=== PATIENT | female | born 1940 | race Two or more races ===

== ENCOUNTER 2016-12-24 12:31 | Observation (INO) | payer MEDICARE, OTHER ==
[~2016-12-24] VITALS: Ht 165.1 cm; Wt 97.5 kg
[2016-12-24] MEDS ORDERED: SOD CHLORIDE 0.9% 1,000 ML IV STA (12:42)
[2016-12-24 12:59] LABS: ADD SCAN DIFF NO
[2016-12-24 13:02] LABS: BASOPHILS % 0.1 % (0.0-2.0); HEMATOCRIT 35.1 % (37.0-47.0); HEMOGLOBIN 11.6 g/dl (12.0-16.0); LYMPHOCYTES # 1.2 10^3/ul (0.8-2.9); LYMPHOCYTES % 16.4 % (15.0-51.0); MEAN CORPUSCULAR HEMOGLOBIN 29.8 pg (29.0-33.0); MEAN CORPUSCULAR VOLUME 90.2 fl (82.0-101.0); MEAN PLATELET VOLUME 10.6 fl (7.4-10.4); MONOCYTE # 0.3 10^3/ul (0.3-0.9); MONOCYTES % 3.6 % (0.0-11.0); NEUTROPHIL # 5.9 10^3/ul (1.6-7.5); NEUTROPHILS % 79.5 % (39.0-77.0); PLATELET COUNT 136 10^3/UL (140-415); RED BLOOD COUNT 3.89 10^6/ul (4.20-5.40); RED CELL DISTRIBUTION WIDTH 13.2 % (11.5-14.5); WHITE BLOOD COUNT 7.4 10^3/ul (4.8-10.8)
--- NOTE | 2016-12-24 13:19 | RADRPT ---
PROCEDURE: Chest x-ray CLINICAL INDICATION: Weakness TECHNIQUE: Chest single view COMPARISON: None FINDINGS: There is moderate cardiomegaly and an sclerotic aortic calcification. The pulmonary vessels are nor mal in caliber. There is mild scarring in the left lower lung. Lungs otherwise clear. The costophr enic angles are sharp. The visualized bony thorax is unremarkable. IMPRESSION: No acute cardiopulmonary disease. Cardiomegaly and an sclerotic aortic calcification Left lower lung scarring RPTAT: HH .Destin Elena MD, MD Date Time Electronically viewed and signed by .Destin Elena MD, MD on 12/24/2016 13:19 .W/
[2016-12-24 13:20] LABS: ALANINE AMINOTRANSFERASE 30 IU/L (13-69); ALBUMIN 4.1 g/dl (3.3-4.9); ALBUMIN/GLOBULIN RATIO 1.57; ALKALINE PHOSPHATASE 82 IU/L (42-121); ANION GAP 13 (8-16); ASPARTATE AMINO TRANSFERASE 18 IU/L (15-46); BILIRUBIN,INDIRECT 0.4 mg/dl (0-1.1); BILIRUBIN,TOTAL 0.4 mg/dl (0.2-1.3); BLOOD UREA NITROGEN 21 mg/dl (7-20); CALCIUM 8.5 mg/dl (8.4-10.2); CARBON DIOXIDE 24 mmol/L (21-31); CHLORIDE 106 mmol/L (97-110); CREATININE 0.89 mg/dl (0.44-1.00); GLUCOSE 110 mg/dl (70-220); POTASSIUM 3.8 mmol/L (3.5-5.1); SODIUM 139 mmol/L (135-144); TOTAL PROTEIN 6.7 g/dl (6.1-8.1)
[2016-12-24 13:27] LABS: URINE BLOOD (Dip) POC Negative (NEGATIVE)
[2016-12-24 13:34] LABS: TROPONIN-I < 0.012 ng/ml (0.00-0.12)
[2016-12-24] MEDS ORDERED: ONDANSETRON 4 MG INJ IV STA (13:37)
[2016-12-24 13:41] LABS: ADD UMIC YES; UR BILIRUBIN (Dip) 1+ (NEGATIVE); UR BLOOD (Dip) NEGATIVE (NEGATIVE); UR CLARITY CLEAR (CLEAR); UR COLOR YELLOW (YELLOW); UR GLUCOSE (Dip) NEGATIVE (NEGATIVE); UR KETONES (Dip) TRACE (NEGATIVE); UR LEUKOCYTE ESTERASE (Dip) TRACE (NEGATIVE); UR NITRITE (Dip) NEGATIVE (NEGATIVE); UR TOTAL PROTEIN (Dip) TRACE (NEGATIVE); UR UROBILINOGEN (Dip) 0.2 E.U./dL (0.1-1.0)
--- NOTE | 2016-12-24 13:42 | ERA ---
ER Documentation Chief Complaint Date/Time DATE: 12/24/16 TIME: 13:36 Chief Complaint hypotensive HPI 76-year-old woman brought in by EMS from [facility] for complaints of dizziness and feeling lightheaded, at the facility they took her blood pressure and systolic was 60 mmHg and they called 911. Patient also complains of sharp nonexertional nonradiating chest pain but denies shortness of breath. She has had no fevers or chills, no vomiting or diarrhea, no headache or blurry vision. Patient was transported here by EMS without further complication ROS All systems reviewed and are negative except as per history of present illness. Allergies Allergies: Coded Allergies: No Known Allergy (Verified Allergy, Mild, 07/08/07) PMhx/Soc Obesity, hypertension History of Surgery: No Anesthesia Reaction: No Hx Neurological Disorder: No Hx Respiratory Disorders: No Hx Cardiac Disorders: Yes (htn, CAD) Hx Psychiatric Problems: No Hx Miscellaneous Medical Probl: No Hx Alcohol Use: No Hx Substance Use: No Hx Tobacco Use: No Smoking Status: Never smoker FmHx Family History: No diabetes Physical Exam Vitals Vital Signs Date Time Temp Pulse Resp B/P Pulse Ox O2 Delivery O2 Flow Rate FiO2 12/24/16 12:40 98.0 71 18 105/65 97 Physical Exam GENERAL: Well-developed, well-nourished, appears dehydrated, dizzy HEENT: Dry mucous membranes, pink conjunctiva, no cervical spine tenderness or step-off deformities, no goiter, no jaundice or icterus, extraocular movements intact without pain. No submandibular induration, and no pharyngeal erythema NEURO: Alert and oriented 3, cranial nerves II through XII intact bilaterally, pupils equal round reactive to light, no focal deficits or facial asymmetry, sensation intact distally Strength 5/5 in upper and lower extremities bilaterally, no nystagmus CARDIAC: Regular rate and rhythm, no murmurs rubs or gallops LUNGS: Clear bilaterally no wheezing crackles or stridor ABDOMEN: Soft nontender, no guarding, no rigidity, no rebound, no psoas sign no obturator sign. Normoactive bowel sounds SKIN: Warm and dry to touch, no abrasions, contusions, or hematomas, no lacerations, no ecchymosis, no target lesions, and without ulcers EXTREMITIES: No clubbing cyanosis or edema, calves are bilaterally symmetrical, no Homans sign, no popliteal cord sign. Distal pulses equal and bilateral PSYCH: Normal affect without agitation or irritability Result Diagram: 12/24/16 1255 12/24/16 1255 Results 24 hrs Laboratory Tests Test 12/24/16 12:55 12/24/16 13:20 12/24/16 13:29 White Blood Count 7.410^3/ul Red Blood Count 3.8910^6/ul Hemoglobin 11.6g/dl Hematocrit 35.1% Mean Corpuscular Volume 90.2fl Mean Corpuscular Hemoglobin 29.8pg Mean Corpuscular Hemoglobin Concent 33.0g/dl Red Cell Distribution Width 13.2% Platelet Count 21074^3/UL Mean Platelet Volume 10.6fl Neutrophils % 79.5% Lymphocytes % 16.4% Monocytes % 3.6% Eosinophils % 0.0% Basophils % 0.1% Nucleated Red Blood Cells % 0.0/100WBC Neutrophils # 5.910^3/ul Lymphocytes # 1.210^3/ul Monocytes # 0.310^3/ul Eosinophils # 0.010^3/ul Basophils # 0.010^3/ul Nucleated Red Blood Cells # 0.010^3/ul Sodium Level 139mmol/L Potassium Level 3.8mmol/L Chloride Level 106mmol/L Carbon Dioxide Level 24mmol/L Anion Gap 13 Blood Urea Nitrogen 21mg/dl Creatinine 0.89mg/dl Glucose Level 110mg/dl Calcium Level 8.5mg/dl Total Bilirubin 0.4mg/dl Direct Bilirubin 0.00mg/dl Indirect Bilirubin 0.4mg/dl Aspartate Amino Transf (AST/SGOT) 18IU/L Alanine Aminotransferase (ALT/SGPT) 30IU/L Alkaline Phosphatase 82IU/L Troponin I < 0.012ng/ml Total Protein 6.7g/dl Albumin 4.1g/dl Globulin 2.60g/dl Albumin/Globulin Ratio 1.57 Lipase 51U/L Urine Color YELLOW Urine Clarity CLEAR Urine pH 5.5 Urine Specific [place] 1.025 Urine Ketones TRACE Urine Nitrite NEGATIVE Urine Bilirubin 1+ Urine Ictotest Pending Urine Urobilinogen 0.2 E.U./dL Urine Leukocyte Esterase TRACE Urine Microscopic RBC Pending Urine Microscopic WBC Pending Urine Hemoglobin NEGATIVE Urine Glucose NEGATIVE% Urine Total Protein TRACE Bedside Urine pH (LAB) 5.5 Bedside Urine Protein (LAB) 1+ Bedside Urine Glucose (UA) Negative Bedside Urine Ketones (LAB) 1+ Bedside Urine Blood Negative Bedside Urine Nitrite (LAB) Negative Bedside Urine Leukocyte Esterase (L Negative Current Medications Medications (Trade) Dose Ordered Sig/Lisa Route PRN Reason Start Time Stop Time Status Last Admin Dose Admin Sodium Chloride (NS) 1,000 ml @ 2,000 mls/hr Q30M STAT IV 12/24/16 12:42 12/24/16 13:11 DC 12/24/16 13:39 Ondansetron HCl (Zofran Inj) 4 mg ONCE STAT IV 12/24/16 13:37 12/24/16 13:39 DC Aspirin (Aspirin) 325 mg ONCE ONCE PO 12/24/16 14:00 12/24/16 14:01 Procedures/MDM IV line was established patient was placed on satellite project site monitor rhythm strip revealed a sinus rhythm at about 70 bpm with upright P and T waves. Patient was afebrile. For initial hypotension and dizziness I treated her here with 2 L normal saline intravenously, Zofran 4 mg IV, and aspirin 325 mg p.o. for cardioprotective measures. EKG performed, read by me: 73 bpm, normal sinus rhythm, normal axis, no acute ST segment changes, narrow QRS complex, with good R-wave progression in precordial leads. One AP view of the chest performed, read by me reveals no acute infiltrates, normal mediastinum, sharp costophrenic and cardiac borders, no air under the diaphragm. Otherwise unremarkable chest x-ray. CBC was unremarkable, electrolytes revealed dehydration with a BUN/creatinine of 21/0.9, liver function tests are normal, troponin was negative. Urine analysis appears unremarkable Patient did complain of low back pain while here so CT scan of the abdomen and pelvis has been ordered to rule out stones, results are pending I will follow- up. Patient will be admitted to telemetry setting for a near syncopal episode, complaints of chest pain, and initial hypotension. Departure Diagnosis: Primary Impression: Hypotension Qualified Code: I95.9 - Hypotension, unspecified hypotension type Additional Impressions: Dizziness Chest pain Qualified Code: R07.9 - Chest pain, unspecified type Near syncope Condition: YASH Hanna MD Dec 24, 2016 13:42
[2016-12-24 13:51] LABS: UR BACTERIA MANY; UR MUCUS MANY
[2016-12-24] MEDS ORDERED: ASPIRIN 325 MG TAB PO ONE (14:00)
[2016-12-24] MEDS ORDERED: VALS320T11 PO (14:15)
[2016-12-24] MEDS ORDERED: MIRA50TA PO (14:16)
--- NOTE | 2016-12-24 14:16 | RADRPT ---
PROCEDURE: CT Abdomen and Pelvis without contrast. CLINICAL INDICATION: Abdominal pain TECHNIQUE: CT of the abdomen and pelvis was performed on a multi-detector scanner without IV contr ast. Coronal and sagittal images were reformatted from the axial data set. One or more of the foll owing dose reduction techniques were used: automated exposure control, adjustment of the mA and/or kV according to patient size, use of iterative reconstruction technique. CTDI = 22.74 mGy. DLP = 12 75.94 mGy-cm. COMPARISON: None. FINDINGS: CT abdomen: The lung bases are clear. There is mild cardiomegaly, without significant pericardial fluid. Coron emilie arterial calcifications are noted. Liver, gallbladder, biliary tree, pancreas, spleen, adrenal glands and kidneys are unremarkable except for benign renal cysts. No urolithiasis or obstructive u ropathy is identified. Moderate to large hiatal hernia is noted. The stomach is otherwise grossly unremarkable. The aorta is of normal caliber. Aortic vascular calcifications are present. There is no retroperit [place] lymphadenopathy. The cee hepatis region is clear. CT pelvis: No bowel obstruction, free intraperitoneal air or abscess is identified. Colonic diverticulosis is seen without diverticulitis. There is no appendicitis or colitis. Fat and fluid containing umbilic al hernia is noted. Uterus is surgically absent. Urinary bladder is grossly unremarkable. No pelvi c mass, free fluid or lymphadenopathy is identified. The surrounding osseous structures are remarkable for degenerative spondylosis of the spine. No ost eolytic or osteoblastic lesion is detected. IMPRESSION: 1. Moderate to large hiatal hernia is noted. 2. Fat and fluid-containing umbilical hernia is seen, without incarceration. 3. Coronary arterial and aortoiliac atherosclerotic calcifications are present. 4. Colonic diverticulosis is seen without diverticulitis. 5. Uterus is surgically absent. 6. No mass, lymphadenopathy, or focal acute inflammatory process is identified. RPTAT: EE .Lee Mcadams MD, MD Date Time Electronically viewed and signed by .Lee Mcadams MD, MD on 12/24/2016 14:16 .R/
[2016-12-24] MEDS ORDERED: ATOR20TA38 PO (14:17)
[2016-12-24] MEDS ORDERED: ZOLP5TAB7 PO (14:17)
[2016-12-24] MEDS ORDERED: AMLO-147 PO (14:17)
[2016-12-24] MEDS ORDERED: OMEP20CA16 PO (14:18)
[2016-12-24] MEDS ORDERED: ASPI-664 PO (14:18)
[2016-12-24] MEDS ORDERED: ERGO500037 PO (14:19)
[2016-12-24] MEDS ORDERED: EZET10TA3 PO (14:19)
[2016-12-24] MEDS ORDERED: DOCU100C26 PO (14:21)
[2016-12-24] MEDS ORDERED: CLON-379 PO (14:22)
[2016-12-24] MEDS ORDERED: DOCUSATE SODIUM 100 MG CAP PO PRN (14:30)
[2016-12-24] MEDS ORDERED: BISACODYL (EC) 5 MG TAB PO PRN (14:30)
[2016-12-24] MEDS ORDERED: BISACODYL 10 MG SUPP PR PRN (14:30)
[2016-12-24] MEDS ORDERED: morphine 2 MG INJ IV PRN (14:30)
[2016-12-24] MEDS ORDERED: NACL 0.9% 3 ML SYG IV SCH (14:30)
[2016-12-24] MEDS ORDERED: ONDANSETRON 4 MG INJ IV PRN (14:30)
[2016-12-24] MEDS ORDERED: HYDROCODONE/APAP (5/325) TAB PO PRN (14:30)
[2016-12-24 14:44] LABS: ICTOTEST NEGATIVE (NEGATIVE)
[2016-12-24 16:00] LABS: INR 1.02; PROTIME 13.4 Sec (12.2-14.2)
[2016-12-24 16:01] LABS: PARTIAL THROMBOPLASTIN TIME 33.3 Sec (25.0-35.0)
[2016-12-24] MEDS: ACETAMINOPHEN 325 MG TAB PO PRN (20:16)
[2016-12-24 20:48] VITALS: PULSE 85
[2016-12-24] MEDS ORDERED: ATORVASTATIN 20 MG TAB PO SCH (21:00)
[2016-12-24] MEDS ORDERED: EZETIMIBE 10 MG TAB PO SCH (21:00)
[2016-12-24 21:16] VITALS: Ht 165.1 cm; Wt 97.5 kg
[2016-12-24 22:00] VITALS: BP 130/74; PULSE 74
[2016-12-24 22:01] VITALS: BP 130/76; PULSE 73
[2016-12-24 22:02] VITALS: BP 131/73; PULSE 75
[2016-12-24] MEDS: SOD CHLORIDE 0.9% 1,000 ML IV SCH ×2 (22:57→23:13)
[2016-12-24] MEDS: [UNRECOGNIZED DRUG - REMARK] XX SCH (22:58)
[2016-12-25] VITALS (9 sets, daily range): BP systolic 130–145; BP diastolic 65–91; PULSE 69–73; RESP 18–19
[2016-12-25] MEDS: [UNRECOGNIZED DRUG - REMARK] XX SCH ×2 (01:30→08:40)
[2016-12-25] MEDS: ACETAMINOPHEN 325 MG TAB PO PRN (01:37)
[2016-12-25 06:23] LABS: ADD SCAN DIFF NO
[2016-12-25 06:41] LABS: HEMATOCRIT 34.5 % (37.0-47.0); HEMOGLOBIN 11.2 g/dl (12.0-16.0); LYMPHOCYTES # 1.4 10^3/ul (0.8-2.9); MEAN CORPUSCULAR HEMOGLOBIN 29.5 pg (29.0-33.0); MEAN CORPUSCULAR HGB CONC 32.5 g/dl (32.0-37.0); MEAN CORPUSCULAR VOLUME 90.8 fl (82.0-101.0); MEAN PLATELET VOLUME 10.7 fl (7.4-10.4); MONOCYTE # 0.4 10^3/ul (0.3-0.9); MONOCYTES % 6.8 % (0.0-11.0); NEUTROPHIL # 4.1 10^3/ul (1.6-7.5); PLATELET COUNT 133 10^3/UL (140-415); RED CELL DISTRIBUTION WIDTH 13.2 % (11.5-14.5); WHITE BLOOD COUNT 5.9 10^3/ul (4.8-10.8)
[2016-12-25 07:10] LABS: ALBUMIN 3.9 g/dl (3.3-4.9); ALBUMIN/GLOBULIN RATIO 1.56; BILIRUBIN,INDIRECT 0.2 mg/dl (0-1.1); BILIRUBIN,TOTAL 0.2 mg/dl (0.2-1.3); CALCIUM 8.6 mg/dl (8.4-10.2); CHOL/HDL RATIO 2.4 RATIO; CREATININE 0.75 mg/dl (0.44-1.00); PHOSPHORUS 3.7 mg/dl (2.5-4.9); POTASSIUM 3.9 mmol/L (3.5-5.1); TOTAL PROTEIN 6.4 g/dl (6.1-8.1)
[2016-12-25 07:31] LABS: THYROID STIMULATING HORMONE 1.73 MIU/L (0.465-4.680)
[2016-12-25] MEDS ORDERED: NON-FORMULARY/PATIENT OWN MED (Mirabegron (Myrbetriq) 50 MG) PO SCH (09:00)
[2016-12-25] MEDS ORDERED: ASPIRIN (EC) 81 MG TAB PO SCH (09:00)
[2016-12-25] MEDS ORDERED: ENOXAPARIN 40 MG/0.4 ML SYG SC SCH (09:00)
--- NOTE | 2016-12-25 09:55 | RADRPT ---
Vent Rate: 72 bpm RR Interval: 0 msec ID Interval: 190 msec QRS Duration: 86 msec QT Interval: 398 msec QTC Interval: 435 msec P-R-T [place]: 31 - 42 - 59 degrees Normal sinus rhythm Normal ECG No previous tracing available for comparison Electronically Signed By: Ole Black [id number]
[2016-12-25] MEDS ORDERED: DOCUSATE SODIUM 100 MG CAP PO PRN (15:30)
--- NOTE | 2016-12-25 16:27 | HP ---
DATE OF ADMISSION: 12/24/2016 PRIMARY CARE PHYSICIAN: NELLY TAYLOR MD. CHIEF COMPLAINT: Dizziness. HISTORY OF PRESENT ILLNESS: This is a 76-year-old female who was in her usual state of health morning. She got up and felt weak, but was able to get to her adult daycare center. At the [facility], the patient was dizzy and at some point, her blood pressure was evaluated and found to be low. This was confirmed by EMS. The patient was brought to the ER. Patient states she has not had any recent medication changes or loss of appetite. She drinks plenty of fluids a day. No loss of speech, vision or focal deficits. No dysphagia, no dysarthria, positive chest pain and palpitat ions. The pain was sharp, left-sided, nonradiating, nonexertional. She does not get any of this pa in exacerbated by walking or eating. She denies any diaphoresis, nausea, vomiting. There was no wi tnessed loss of consciousness. In the ER, the blood pressure is better, sinus rhythm. She actually felt better and wanted to go ho me. EKG: Sinus rhythm, no acute process. Blood pressure 83/56 noted by EMS, blood sugar 125, awak e, alert, follows commands. Community Marketing Manager ER staff. PAST MEDICAL HISTORY 1. Hypertension. 2. Possible coronary artery disease. 3. Possible anemia. PAST SURGICAL HISTORY: None. SOCIAL HISTORY: No active tobacco or alcohol. FAMILY HISTORY: There is no family history of early coronary artery disease, cancer or stroke that I am aware of. ALLERGIES: NO KNOWN DRUG ALLERGIES. HOME MEDICATIONS: 1. Norvasc 10. 2. Clonidine 0.1 p.r.n. 3. Colace 100 b.i.d. p.r.n. 4. Vitamin D 50,000 units weekly. 5. Diovan 325. 6. Ambien 5 p.r.n. 7. Omeprazole 20. 8. Possibly aspirin 81. 9. Lipitor 20. 10. Zetia 10. 11. Mirabegron 50 mg daily. REVIEW OF SYSTEMS: NEUROLOGIC: No headache. No loss of speech or vision. CARDIOVASCULAR: Positive chest pain, no dyspnea, no edema. LUNGS: No cough, no wheezing, no fever. ABDOMEN: No pain, no nausea, no vomiting, no diarrhea. GENITOURINARY: No hematuria, burning micturition or fever. MUSCULOSKELETAL: No gait dysfunction. No rash, no itching, no edema. Nonfocal. PSYCHIATRY: The patient has stable mood without significant agitation, anxiety or depression. CONSTITUTIONAL: No fevers, no chills, no weight loss that I am aware of. HEMATOLOGIC: No hematochezia, melena, hematuria that I am aware of. ENDOCRINE: No previous diabetes or thyroid dysfunction. Positive dyslipidemia. PHYSICAL EXAMINATION: HEENT: Extraocular movements are intact. No pallor, no icterus. No adenopathy. No carotid bruits . No JVD. No droop. CARDIOVASCULAR: S1, S2 regular. No murmur, rub, gallops. LUNGS: Clear to auscultation bilaterally. Nontender to reproducible examination. No rash along th e chest wall. ABDOMEN: Bowel sounds present, nontender, nondistended. No rigidity. No rebound or guarding. She is overweight. EXTREMITIES: Without any edema. Negative Homans sign. NEUROLOGICAL SYSTEM: Cranial nerves II through XII grossly intact. Motor 5/5 x4. Sensory symmetri paras. Reflexes symmetrical. Babinski's None. LABORATORY DATA: Chest x-ray: No acute process. There is cardiomegaly, left lower lobe scarring C AT scan of abdomen was done, shows moderate to large hiatal hernia, fat and fluid fat containing umb ilical hernia, coronary artery atherosclerotic calcifications, coronary diverticulosis, surgically a bsent uterus. White cell count of 7, hemoglobin and hematocrit of 11 and 35, MCV 90, platelets of 136. INR 1, ketones trace, negative nitrites, negative leukocyte esterase, which was actually trace , RBCs 2 to 5, white cells 5 to 10. ASSESSMENT 1. Syncope, hypotension, probably orthostatic related. 2. Chronic hypertension. 3. Chronic coronary artery disease? 4. Chronic dyslipidemia. 5. Anemia, asymptomatic. Consider outpatient iron studies if needed. 6. Large hiatal hernia. 7. Umbilical hernia. 8. Chronic diverticulosis. PLAN: Admit to tele, rule out arrhythmia. No evidence of ACS. Once blood pressure is stable, anti cipate discharge. Hold blood pressure medicines and reevaluate fluid intake as an outpatient. Dictated By: DANGELO SILVERIO/ABILIO Conf#: [id number] DID#: [id number] CC: NELLY TAYLOR MD;*[facility]*
--- NOTE | 2016-12-25 16:30 | PDOCDIS ---
Discharge Instructions DIAGNOSIS Discharge Diagnosis: low blood pressure CONDITION Patient Condition: Stable HOME CARE INSTRUCTIONS: Special Diet: LOW FAT LOW CHOLYour diet recommendation is: drink 6 to 8glasses of fluids per day; dont skip meals ACTIVITY: Activity Restrictions: Slowly Increase Activity Do not Drive FOLLOW UP/APPOINTMENTS Appointments appt PCP 1DANGELO David MD Dec 25, 2016 16:30
--- NOTE | 2016-12-25 17:09 | DS ---
DATE OF ADMISSION: 12/24/2016 DATE OF DISCHARGE: 12/25/2016 PRIMARY CARE PHYSICIAN: Nelly Ruiz MD ETCHER APPRENTICE PHOTOENGRAVING: None. DIAGNOSIS ON ADMISSION: Hypotension. DIAGNOSES ON DISCHARGE: 1. Orthostatic hypotension. 2. Chronic coronary artery disease. 3. Chronic hypertension. 4. Anemia. 5. Prediabetes. HOSPITAL COURSE: This is a 76-year-old female admitted from home/daycare center with low blood pres sure. Orthostatics were negative after everything was settled and noted. Probably resolved with th e fluids given in the ER. The patient's son states the patient drinks about 1-1/2 of the small wate r bottles per day. She is adherent to her blood pressure medications. No acute blood loss noted. No further symptoms. No further hypotension. No arrhythmias while on the monitor. The patient is presently stable and fit for discharge. She probably even skipped a meal prior to going out to the adult daycare center. DISCHARGE PLAN: Home and follow up with primary in 1 week. DIET: Cardiac. ACTIVITY: As tolerated. No driving. DURABLE MEDICAL EQUIPMENT: None. CODE STATUS: FULL. CONDITION: Stable. BARRIERS TO DISCHARGE: None. PENDING TESTS: None. FUNCTIONAL STATUS: The patient awake, alert. She and her son agree with the plan of care. REASON FOR ADMISSION: Hypotension. ALLERGIES: NO KNOWN DRUG ALLERGIES. TECHNICAL SPEC: Son at bedside. LABORATORY/DIAGNOSTIC DATA: EKG: Sinus rhythm, no acute process. Chest x-ray: No acute process. Cardiomegaly seen. CAT scan abdomen and pelvis: No acute process. There is moderate to large hia dao hernia White cell count 5.9, hemoglobin and hematocrit of 11 and 34, MCV 90, platelets of 133, a little low . CMP essentially unremarkable. Troponin negative x3. TSH of 1.7. Lipase of 51. A1c of 5.7. To dao cholesterol 113, triglycerides 64, LDL 53, LDL 47. DISCHARGE MEDICATIONS: STOPPED MEDICATIONS: Ambien. CONTINUED MEDICATIONS: 1. Lipitor 20. 2. Zetia 10. 3. Diovan 320. 4. Norvasc 10. 5. Clonidine 0.1 daily as needed. 6. Aspirin 81 daily. 7. Colace as needed b.i.d. 8. Omeprazole 20. 9. Vitamin D 50,000 units weekly. 10. Mirabegron 50 mg daily. ALTERED MEDICATIONS: None. NEW MEDICATIONS: None. Dictated By: DANGELO SILVERIO/ABILIO Conf#: [id number] DID#: [id number] CC: NELLY RUIZ MD;*[facility]*
[2016-12-26] MEDS ORDERED: VALSARTAN 160 MG TAB PO SCH (09:00)
== END 2016-12-25 17:00 | disposition home or self-care (01) ==
LOC: E/R 12:31 → TEL 13:55 → UNDOADMOB 13:55 → TEL 21:03 → UNDODISOB 12-25 17:00
PROVIDERS: ADMIT Internal Medicine; ATTEND Internal Medicine
DX: I95.1 Orthostatic hypotension (principal); I25.10 Atherosclerotic heart disease of native coronary artery without angina pectoris; D64.9 Anemia, unspecified; R73.03 Prediabetes; I10 Essential (primary) hypertension; E78.5 Hyperlipidemia, unspecified; K44.9 Diaphragmatic hernia without obstruction or gangrene; K42.9 Umbilical hernia without obstruction or gangrene; K57.30 Diverticulosis of large intestine without perforation or abscess without bleeding
CPT/HCPCS: 36415; 71010; 74176; 80053; 80061; 81001; 83036; 83690; 83735; 84100; 84443; 84484; 85025; 85610; 85730; 87086; 93005; 96360; 96361; 96372; 99285; G0378; J1650; J7030; 81003